=== PATIENT | female | born 1945 | race Caucasian/White ===

== ENCOUNTER 2020-03-31 08:27 | Emergency (ER) | payer MEDICARE ==
[2020-03-31 09:15] LABS: HEMOGLOBIN 14.7 gm/dl (12.3-15.3); RED BLOOD COUNT 4.79 M/UL (4.00-5.10); WHITE BLOOD COUNT 7.9 K/UL (4.5-11.0)
[2020-03-31 09:48] LABS: BUN/CREATININE RATIO 19 (0-10)
[2020-03-31] MEDS ORDERED: MECLIZINE HCL25 MG PO (11:52)
[2020-03-31] MEDS ORDERED: ONDANSETRON ODT4 MG SL (11:52)
== END 2020-03-31 12:00 | disposition home or self-care (01) ==
LOC: ER1 08:27
PROVIDERS: Family Medicine
DX: R42 Dizziness and giddiness (principal); R11.0 Nausea; G31.9 Degenerative disease of nervous system, unspecified; I10 Essential (primary) hypertension; E78.5 Hyperlipidemia, unspecified; K21.9 Gastro-esophageal reflux disease without esophagitis; Z79.899 Other long term (current) drug therapy; Z85.828 Personal history of other malignant neoplasm of skin
CPT/HCPCS: 36415; 70450; 71045; 80053; 81001; 82550; 82553; 83874; 84484; 85025; 85610; 85730; 93005; 96374; 99284; J2405